=== PATIENT | male | born 1995 ===

== ENCOUNTER 2020-01-14 02:02 | Emergency (ER) | payer SELFPAY ==
[~2020-01-14] VITALS: Ht 182.9 cm; Wt 90.9 kg
--- NOTE | 2020-01-14 02:15 | NUR ---
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 PT THRASHING AROUND IN MED UNABLE TO SIT STILL MD AT BEDSIDE WITNESSING PT BEHAVIOR . PT REASSURES HE WAS SAFE
[2020-01-14] MEDS ORDERED: haloperidol lactate 5mg/ml inj IM ONE (02:20)
--- NOTE | 2020-01-14 02:20 | NUR ---
MEDICATED PATIENT WITH 5 MG HALDOL IM TO LEFT THIGH ,
--- NOTE | 2020-01-14 02:20 | NUR ---
ATTEMPTED TO DO EKGWITHOUT SUCESS PT VERY SWEATING AND MOVING AROUND, WILL MEDICATE TO RELAX PATIENT AND SLOW HIS TACHYCARDIA AND RE ATTEMPT
--- NOTE | 2020-01-14 02:30 | NUR ---
MD BERG AWARE THAT EKG WILL BE REATTEMPTED ONCE PATIENT IS ABLE TO HOLD STILL
[2020-01-14] MEDS ORDERED: MIDAZolam 5mg/ml 2ml vial IV ONE (02:35)
--- NOTE | 2020-01-14 02:35 | NUR ---
PT PLACED ON ENVIRONMENTAL HEALTH AND SAFETY INTERN .
--- NOTE | 2020-01-14 02:38 | NUR ---
Verbal order for 5 mg versed.
--- NOTE | 2020-01-14 03:07 | NUR ---
PT TO CT WITH TECH
--- NOTE | 2020-01-14 03:14 | NUR ---
PT BACK FROM CT
[2020-01-14 03:28] LABS: ALBUMIN 3.5 G/DL (3.4-5.0); ANION GAP 8 (8-16); BLOOD UREA NITROGEN 13 MG/DL (7-18); BUN/CREATININE RATIO 10.1 (5.4-32.0); CALCIUM 7.9 MG/DL (8.5-10.1); CHLORIDE 111 MMOL/L (99-107); CREATININE 1.29 MG/DL (0.60-1.10); GLUCOSE 145 MG/DL (70-104); SODIUM 145 MMOL/L (135-145); TOTAL CARBON DIOXIDE 26.5 MMOL/L (24-32); eGFR 68 ML/MIN
[2020-01-14 03:36] LABS: POTASSIUM 2.9 MMOL/L (3.5-5.1)
[2020-01-14] MEDS ORDERED: potassium Cl 20 mEq SR tablet PO STA (03:58)
[2020-01-14] MEDS ORDERED: normal saline 1000ml 1,000 ML IV ONE (04:00)
[2020-01-14] MEDS ORDERED: magnesium oxide 400mg tablet PO ONE (04:00)
--- NOTE | 2020-01-14 04:55 | NUR ---
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
[2020-01-14 05:13] VITALS: BP 128/75
== END 2020-01-14 05:10 | disposition home or self-care (01) ==
LOC: ER 02:03
DX: S70.12XA Contusion of left thigh, initial encounter (principal); S00.01XA Abrasion of scalp, initial encounter; E87.6 Hypokalemia; F10.129 Alcohol abuse with intoxication, unspecified; R45.1 Restlessness and agitation; W50.0XXA Accidental hit or strike by another person, initial encounter; Y93.89 Activity, other specified; Y92.89 Other specified places as the place of occurrence of the external cause; Y99.9 Unspecified external cause status
CPT/HCPCS: 36415; 70450; 80048; 93005; 96372; 96374; 99285; J1630; J2250; J7030